=== PATIENT | male | born 1990 | race Caucasian/White ===

== ENCOUNTER 2024-02-18 04:34 | Emergency (ER) | payer MEDICARE, SELFPAY ==
[2024-02-18 04:37] VITALS: BP 128/86
[2024-02-18 04:42] VITALS: BMI 22.9
[2024-02-18] MEDS: MOTRIN 600 MG PO (05:06)
[2024-02-18] MEDS: CLEOCIN 300 MG PO (05:06)
[2024-02-18] MEDS: PERCOCET 5/325 1 TABLET PO (05:07)
--- NOTE | 2024-02-18 05:13 | ED.GENMED ---
History of Present Illness
General
Chief Complaint: Dental Problem
Source: patient
Exam Limitations: none
Time Seen by Provider: 02/18/24 04:44
Nursing documentation reviewed up to this point in time: agreed with
Travel History
Have you had any contact with someone who has COVID-19?: No
Do you have any symptoms of coronavirus? Fever > 100 degrees, chills, cough, shortness of breath, sore throat, loss of taste or smell, muscle aches, or headache?: No
History of Present Illness
History of Present Illness:
33-year-old male accompanied mother right-sided facial pain and swelling missing a tooth on that side, earlier in the week he had somedrainage some numbness on that side, is allergic to penicillin gives him a rash, smoker
Past History
Past History
ED Past Medical History: None
ED Past Surgical History: None
Social History
Tobacco: Smoker
Alcohol: Occasional
Drug: None
Personal: Single
Living: with family
Employment: Employed
Family History
Family History: Hypertension
Review of Systems
Review of Systems
All Other Systems: Not applicable
Constitutional: Denies fever or fatigue
EENT: Reports other (Facial swelling dental pain)
Phy Exam
Physical Exam
Physical Exam:
Physical Exam
General: no apparent distress, not acutely ill
Neck: Small amount of right-sided facial swelling intraoral exam no trismus base of the tongue is not raised, missing his second molar on the right bottom, mild gingival hypertrophy lateral to that area no palpable abscess
Lungs: no acute respiratory distress. clear bilaterally
Neuro: alert and oriented. no focal neurological deficits
Skin: no rash
Psychiatric: well kept. interactive and cooperative
Extremities: no edema.
Course
Orders/Labs/Results
Orders:
Orders
02/18/24 05:02
Clindamycin HCl [Cleocin] 300 mg PO NOW STA
Ibuprofen [Motrin] 600 mg PO NOW STA
Oxycodone/Acetaminophen [Percocet 5/325] 1 tablet PO NOW STA
Vital Signs
Initial and Last Documented VS:
Initial Vital Signs
Temp Pulse Resp BP Pulse Ox
98.1 F 78 20 128/86 100
02/18/24 04:37 02/18/24 04:37 02/18/24 04:37 02/18/24 04:37 02/18/24 04:37
Last Documented Vital Signs
Temp Pulse Resp BP Pulse Ox
98.1 F 78 20 128/86 100
02/18/24 04:37 02/18/24 04:37 02/18/24 04:37 02/18/24 04:37 02/18/24 04:37
Procedures
Dentalgia
Dental Block: Infiltration
Bupivacaine 0.5%/Epi Dental cartridge administered?: Yes
Abcess drained?: No
Pt tolerated procedure well w/ no immediate adverse effects?: Yes
MDM/Problems Addressed
Differential Diagnosis Includes:
Dental caries dental abscess no signs of deep space infection/ Benji's
MDM/Problems Addressed:
Facial swelling dental pain
Chronic conditions affecting care:
Poor dentition
*Critical Care Note
Total Time (30-74mins, 75-104mins- exclusive of procedures): Not Applicable
Update Note
Update Note:
Update local anesthetic instilled lateral to the right lower second molar attempted draining some hypertrophic tissue did not reveal any pus, attempt aborted, direct pressure placed, antibiotics ordered will refer to oral surgery
ED Attending Note
-
Portions of this chart may have been created with voice recognition software.� Occasional wrong word or��sound alike� substitutions may have occurred due to the inherent limitations of voice recognition software.
Discharge Plan
Departure
Patient Disposition: Home (Routine Discharge)
Date of Disposition: 02/18/24
Time of Disposition: 05:02
Patient with high blood pressure during this ER visit?: No
Condition: Good
Discharge Problem:
Dental abscess
Instructions: Tooth Abscess (DC), Tooth Decay, Adult (DC)
Prescriptions:
New
ibuprofen 600 mg tablet
600 mg PO Q8H PRN (Reason: Pain) Qty: 20 0RF
clindamycin HCl [Cleocin HCl] 300 mg capsule
300 mg PO Q8H 7 Days Qty: 21 0RF
oxycodone-acetaminophen [Percocet] 5-325 mg tablet
1 tab PO Q4HPRN PRN (Reason: pain) Qty: 7 0RF
Referrals:
Lionel Madden, DMD [Active] - Next open appointment
Interventions
Interventions:
*Risk Screen - Suicide Last Done: 02/18/24 04:37
*General Assessment Last Done: 02/18/24 04:42
*Neglect/Abuse Screening Last Done: 02/18/24 04:37
ED- Fall Risk Assessment Last Done: 02/18/24 04:42
*ED COVID-19 Vaccine History Last Done: 02/18/24 04:42
*Nursing Disposition Last Done: 02/18/24 05:12
Discharge Date and Time
Print Language: GREEK
== END 2024-02-18 05:13 | disposition home or self-care (01) ==
LOC: EMR 04:34
PROVIDERS: EMERGENCY PHYSICIAN Emergency Medicine; FAMILY PHYSICIAN Nurse Practitioner Family
DX: K04.7 Periapical abscess without sinus (principal); F17.200 Nicotine dependence, unspecified, uncomplicated; Z88.0 Allergy status to penicillin; Z82.49 Family history of ischemic heart disease and other diseases of the circulatory system
CPT/HCPCS: 99282; 64400

== ENCOUNTER 2024-02-24 16:55 | Emergency (ER) | payer MEDICARE, SELFPAY ==
[2024-02-24 16:56] VITALS: BP 128/95
[2024-02-24 17:05] VITALS: BMI 21.5
--- NOTE | 2024-02-24 18:04 | ED.GENMED ---
History of Present Illness
General
Chief Complaint: Swelling
Source: patient and records
Exam Limitations: none
Time Seen by Provider: 02/24/24 17:13
Nursing documentation reviewed up to this point in time: agreed with
Travel History
Have you had any contact with someone who has COVID-19?: No
Do you have any symptoms of coronavirus? Fever > 100 degrees, chills, cough, shortness of breath, sore throat, loss of taste or smell, muscle aches, or headache?: No
History of Present Illness
History of Present Illness:
Patient is a 33-year-old male who presents to the emergency department with left-sided lower jaw swelling that has gotten progressively worse over the past couple of days. Patient denies fever or chills. Patient denies any change in voice.
Patient denies any drooling or difficulty swallowing. Patient denies any shortness of breath. Patient was seen for the similar episode on the and started on antibiotics. Patient has not followed up with a dentist or oral surgeon
Past History
Past History
ED Past Medical History: None
ED Past Surgical History: None
Social History
Tobacco: Smoker
Alcohol: Occasional
Drug: None
Personal: Single
Living: with family
Employment: Employed
Family History
Family History: Hypertension
Review of Systems
Review of Systems
All Other Systems: Not applicable
Phy Exam
Physical Exam
Physical Exam:
Physical Exam
General: mild distress, alert and appropriate, well nourished, well hydrated
HENT: Normocephalic, supple with no lymphadenopathy, no thyromegaly. Oropharynx is clear. Sublingual tongue unremarkable. Patient's first molar on the right is broken off at the gumline which has been there for few years.
Patient denies any tenderness with palpation of the area. Patient does have a fullness and fluctuance lateral to the tooth and the teeth posteriorly to it. Externally the patient does have swelling around the same area. There is no submandibular
tenderness or swelling. Trachea is midline nontender.
Eyes: Clear sclera, conjuctiva without injection
Heart: Regular rhythm and rate.
Lungs: No respiratory distress, no stridor, lung sounds clear and equal bilaterally
Neuro: Alert and oriented x 3, CN II - XII intact, no motor focality, no cerebellar dysfunction
Psychiatric: well kept. interactive and cooperative
Extremities: No edema, cyanosis, tenderness
Course
Vital Signs
Initial and Last Documented VS:
Initial Vital Signs
Temp Pulse Resp BP Pulse Ox
98.7 F 101 20 128/95 99
02/24/24 16:56 02/24/24 16:56 02/24/24 16:56 02/24/24 16:56 02/24/24 16:56
Last Documented Vital Signs
Temp Pulse Resp BP Pulse Ox
98.7 F 101 20 128/95 99
02/24/24 16:56 02/24/24 16:56 02/24/24 16:56 02/24/24 16:56 02/24/24 16:56
Procedures
Incision/Drainage/Joint Aspiration
Left lower lateral gingival:
Anethesia: 1% Lidocaine with Epi
Type of procedure: incise and drain
Nature of site: abscess
Description of abscess: less than 3cm
Loculations broken up: Yes
How much fluid was obtained?: small amount
Fluid description: purulent
Treatment: left open for drainage and packed with gauze
*Radiology
Radiology exam reviewed: other (na)
*Pulse Oximetry
Patient hypoxic: no
*EKG
Interpreted by ED Provider?: NA
*Dry Cure Worker Interpretation
Rate: Dry Cure Worker- N/A
*Critical Care Note
Total Time (30-74mins, 75-104mins- exclusive of procedures): Not Applicable
Update Note
Update Note:
Patient is allergic to penicillin we will start more clindamycin. Patient referred to oral surgery.
ED Attending Note
-
Portions of this chart may have been created with voice recognition software.� Occasional wrong word or��sound alike� substitutions may have occurred due to the inherent limitations of voice recognition software.
Discharge Plan
Departure
Patient Disposition: Home (Routine Discharge)
Date of Disposition: 02/24/24
Time of Disposition: 18:12
Patient with high blood pressure during this ER visit?: No
Covid-19: Not Applicable
Discharge Problem:
Gingival abscess
Instructions: Tooth Abscess ED
Prescriptions:
New
oxycodone 5 mg tablet
5 mg PO Q4H PRN (Reason: Pain) Qty: 10 0RF
clindamycin HCl 300 mg capsule
300 mg PO TID Qty: 15 0RF
No Action
ibuprofen 600 mg tablet
600 mg PO Q8H PRN (Reason: Pain) Qty: 20 0RF
clindamycin HCl [Cleocin HCl] 300 mg capsule
300 mg PO Q8H 7 Days Qty: 21 0RF
oxycodone-acetaminophen [Percocet] 5-325 mg tablet
1 tab PO Q4HPRN PRN (Reason: pain) Qty: 7 0RF
Referrals:
Opal Paul CRNP [Family Provider] - Follow up in 5-7 days
Lionel Madden DMD [Active] - Call in 1-3 days for appt
Activity Restrictions/Additional Instructions:
Rinse out mouth 3-4 times a day. If packing comes out no problem leave it out. Take antibiotics as prescribed. Make sure to follow-up with oral surgery because further treatment is needed.
Interventions
Interventions:
*Risk Screen - Suicide Last Done: 02/24/24 16:56
*General Assessment Last Done: 02/24/24 16:56
*Neglect/Abuse Screening Last Done: 02/24/24 16:56
ED- Fall Risk Assessment Last Done: 02/24/24 17:09
*ED COVID-19 Vaccine History Last Done: 02/24/24 17:08
ED- Cardiac Assessment Last Done: 02/24/24 17:09
ED- Pulmonary Assessment Last Done: 02/24/24 17:09
ED-Skin Assessment Last Done: 02/24/24 17:09
Discharge Date and Time
Print Language: ISRAELI
== END 2024-02-24 18:25 | disposition home or self-care (01) ==
LOC: EMR 16:55
PROVIDERS: EMERGENCY PHYSICIAN Emergency Medicine; FAMILY PHYSICIAN Nurse Practitioner Family
DX: K05.219 Aggressive periodontitis, localized, unspecified severity (principal); F17.200 Nicotine dependence, unspecified, uncomplicated; Z82.49 Family history of ischemic heart disease and other diseases of the circulatory system
CPT/HCPCS: 99282; 10060; 87070; 87205

== ENCOUNTER 2025-02-08 07:10 | Emergency (ER) | payer OTHER, SELFPAY ==
[2025-02-08 07:11] VITALS: BP 111/73
--- NOTE | 2025-02-08 08:30 | ED.GENMED ---
History of Present Illness
General
Chief Complaint: Dental Problem
Source: patient
Exam Limitations: none
Time Seen by Provider: 02/08/25 08:02
Nursing documentation reviewed up to this point in time: agreed with
History of Present Illness
History of Present Illness:
Patient is a 34-year-old male who complains of generalized dental pain. He has been here multiple times in the past for dental issues and has not ever seen dentist since. He has been taking Indy aspirin but nothing else. He is aware that he has
dental decay cavities and needs multiple tooth extractions.
Past History
Past History
ED Past Medical History: None
ED Past Surgical History: None
Social History
Tobacco: Smoker
Alcohol: Occasional
Drug: None
Personal: Single
Living: with family
Employment: Employed
Family History
Family History: Hypertension
Review of Systems
Review of Systems
Allergies reviewed?: Yes
All Other Systems: ROS reviewed and negative except as documented in HPI and ROS
Constitutional: Reports no symptoms; Denies fever, fatigue or chills
EENT: Reports other (Generalized dental pain)
Respiratory: Reports no symptoms
Cardiac: Reports no symptoms
ABD/GI: Reports no symptoms
Musculoskeletal: Reports no symptoms
Skin: Reports no symptoms
Neurological: Reports no symptoms
Psychiatric: Reports no symptoms
Phy Exam
General Physical Exam
General Presentation: no apparent distress
General age: appears stated age
General Skin: warm and dry
General Mental: alert
General Hydration: appears well hydrated
ENT Exam
ENT Exam: EOMI, neck supple and other (Widespread dental decay obvious cavities no trismus no obvious abscess or gum swelling; no specific tooth tenderness)
Neurological Exam
Neurological Exam: alert and oriented x3
Musculoskeletal Exam
Musculoskeletal Exam: full ROM
Skin Exam
Skin Exam: normal color and warm/dry
Psychiatric Exam
Psychiatric Exam: normal mood/affect
Course
Orders/Labs/Results
Orders:
Orders
02/08/25 08:29
Clindamycin HCl [Cleocin] 300 mg PO NOW STA
02/08/25 08:30
Ibuprofen [Motrin] 600 mg PO NOW STA
Vital Signs
Initial and Last Documented VS:
Initial Vital Signs
Temp Pulse Resp BP Pulse Ox
98.0 F 79 16 111/73 97
02/08/25 07:11 02/08/25 07:11 02/08/25 07:11 02/08/25 07:11 02/08/25 07:11
Last Documented Vital Signs
Temp Pulse Resp BP Pulse Ox
98.0 F 79 16 111/73 97
02/08/25 07:11 02/08/25 07:11 02/08/25 07:11 02/08/25 07:11 02/08/25 07:11
MDM/Problems Addressed
Differential Diagnosis Includes:
Not limited to dental decay
MDM/Problems Addressed:
Patient complains of generalized dental pain he has been here several times for dental issues and reports he has never been to his dentist as a follow-up. He has obvious dental decay with broken teeth and cavities however there is no exact point
tenderness to 1 specific tooth. He has no obvious abscess on exam or gum swelling. I reviewed with patient the importance of getting a dentist. He is aware of the dental clinics in [place] and has insurance card and states he will call a
local dentist. Discussed ibuprofen and antibiotics.
*Critical Care Note
Total Time (30-74mins, 75-104mins- exclusive of procedures): Not Applicable
ED Attending Note
-
Portions of this chart may have been created with voice recognition software.� Occasional wrong word or��sound alike� substitutions may have occurred due to the inherent limitations of voice recognition software.
Discharge Plan
Departure
Patient Disposition: Home (Routine Discharge)
Date of Disposition: 05/12/25
Time of Disposition: 08:30
Patient with high blood pressure during this ER visit?: No
Condition: Fair
Covid-19: Not Applicable
Discharge Problem:
Pain, dental
Instructions: Tooth Decay, Adult (DC), Dental Pain (DC)
Prescriptions:
New
clindamycin HCl 300 mg capsule
300 mg PO TID Qty: 30 0RF
No Action
ibuprofen 600 mg tablet
600 mg PO Q8H PRN (Reason: Pain) Qty: 20 0RF
clindamycin HCl [Cleocin HCl] 300 mg capsule
300 mg PO Q8H 7 Days Qty: 21 0RF
oxycodone-acetaminophen [Percocet] 5-325 mg tablet
1 tab PO Q4HPRN PRN (Reason: pain) Qty: 7 0RF
oxycodone 5 mg tablet
5 mg PO Q4H PRN (Reason: Pain) Qty: 10 0RF
clindamycin HCl 300 mg capsule
300 mg PO TID Qty: 15 0RF
Referrals:
Avel Evans MD [Family Provider] -
Activity Restrictions/Additional Instructions:
As discussed you must follow-up with dentist. You may call one of a local dentist or you may follow-up with one of the [facility] dental clinics in [place]. A prescription for antibiotics was sent to your pharmacy take as directed. You may
take ibuprofen for discomfort. Return if any facial swelling fever chills or any further concerns .
Interventions
Interventions:
*Risk Screen - Suicide Last Done: 02/08/25 07:11
*General Assessment Last Done: 02/08/25 07:11
Discharge Date and Time
Print Language: MACEDONIAN
[2025-02-08] MEDS: MOTRIN 600 MG PO (08:47)
[2025-02-08] MEDS: CLEOCIN 300 MG PO (08:48)
== END 2025-02-08 08:52 | disposition home or self-care (01) ==
LOC: EMR 07:10
PROVIDERS: EMERGENCY PHYSICIAN Emergency Medicine; FAMILY PHYSICIAN Family Medicine
DX: K08.89 Other specified disorders of teeth and supporting structures (principal); K02.9 Dental caries, unspecified; S02.5XXA Fracture of tooth (traumatic), initial encounter for closed fracture; X58.XXXA Exposure to other specified factors, initial encounter; F17.210 Nicotine dependence, cigarettes, uncomplicated; Z88.0 Allergy status to penicillin
CPT/HCPCS: 99283